=== PATIENT | female | born 1990 | race Caucasian/White ===

== ENCOUNTER 2016-07-01 10:21 | Outpatient (CLI) | payer BC ==
[2016-07-01] VITALS (18 sets, daily range): BP systolic 134–160; BP diastolic 89–104
[~2016-07-01] VITALS: Ht 165.1 cm; Wt 68.0 kg
[2016-07-01 11:59] LABS: ADD MIUA? YES; BILIRUBIN NEGATIVE; BLOOD NEGATIVE; COLOR YELLOW ((YELLOW)); GLUCOSE (STRIP) 50; KETONES NEGATIVE; LEUKOCYTES LARGE; NITRITE NEGATIVE; PROTEIN (STRIP) NEGATIVE; SPECIFIC GRAVITY 1.006 (1.000-1.030); UROBILINOGEN 0.2 MG/DL (0.2-1.0)
[2016-07-01 12:11] LABS: EOSINOPHIL (%) 0.5 % (0-5); IMMATURE GRANULOCYTE (%) 0.3 % (0.0-0.7); INSTRUMENT ABS NEUTROPHIL CT 6.7 K/uL; MCH 29.9 PG (29.0-34.0); MCHC 33.8 G/DL (30.0-36.0); MCV 88.3 FL (83-99); MEAN PLAT.VOLUME 10.7 uM^3 (9.5-12.4); MONOCYTE (%) 10.8 % (3-12); NEUTROPHIL (%) 76.6 % (45-76); NEUTROPHIL COUNT 6.7 K/uL (1.8-6.4); PLATELET COUNT 206 K/uL (156-360); RBC DIS.WIDTH-CV 13.3 % (11.8-14.6); RED BLOOD COUNT 3.85 M/uL (3.80-5.20); WHITE BLOOD COUNT 8.8 K/uL (4.1-10.2)
[2016-07-01 12:21] LABS: UR CREATININE CONCENTRATION 44.1 MG/DL
[2016-07-01 12:33] LABS: ANION GAP 9 MEQ/L (2-14); CHLORIDE 107 MEQ/L (99-109); POTASSIUM 3.5 MEQ/L (3.7-5.4); SAMPLE HEMOLYSIS CHECK 0; SAMPLE ICTERIC CHECK 0; SAMPLE LIPEMIA CHECK 0; SODIUM 140 MEQ/L (136-147); TOTAL BILIRUBIN 0.2 MG/DL (0.0-1.0)
[2016-07-01 12:38] LABS: ALKALINE PHOSPHATASE 72 IU/L (3-129); GFR ESTIMATE (CALCULATED) > 59 mL/min/; GLUCOSE 80 mg/dL (70-99); LACTATE DEHYDROGENASE 153 IU/L (20-246); UREA NITROGEN (BUN) 6 mg/dL (9-23); URIC ACID 3.1 mg/dL (3.1-9.2)
[2016-07-01 12:42] LABS: BACTERIA 1+ /HPF; EPITHELIAL CELLS 1+ /HPF; HYALINE CASTS 0-5 /LPF; MUCUS NONE SEEN /LPF; RED BLOOD CELLS 0-5 /HPF (0-5); UCUL ADDED? NO
== END 2016-07-01 20:35 | disposition home or self-care (01) ==
LOC: LDRP-OP → 2WEST 10:22 → LDRP-OP 10-06 17:34
PROVIDERS: Advanced Practice Midwife
DX: O13.3 Gestational [pregnancy-induced] hypertension without significant proteinuria, third trimester (principal); O14.93 Unspecified pre-eclampsia, third trimester; Z3A.30 30 weeks gestation of pregnancy
CPT/HCPCS: 59025; 76818; 80053; 81003; 82570; 83615; 84156; 84550; 85025; 85384; 87086; G0378

== ENCOUNTER 2016-08-16 11:25 | Inpatient (IN) | payer BC ==
[2016-08-16] VITALS (36 sets, daily range): BP systolic 115–163; BP diastolic 57–109
[~2016-08-16] VITALS: Ht 172.7 cm; Wt 84.1 kg
[2016-08-16 12:02] LABS: EOSINOPHIL (%) 0.4 % (0-5); IMMATURE GRANULOCYTE (%) 0.5 % (0.0-0.7); IMMATURE GRANULOCYTE COUNT 0.1 K/uL; INSTRUMENT ABS NEUTROPHIL CT 6.9 K/uL; LYMPHOCYTE COUNT 1.1 K/uL (1.0-2.8); MCH 29.6 PG (29.0-34.0); MCHC 33.5 G/DL (30.0-36.0); MCV 88.3 FL (83-99); MEAN PLAT.VOLUME 11.4 uM^3 (9.5-12.4); MONOCYTE COUNT 1.1 K/uL (0-0.8); NEUTROPHIL (%) 74.9 % (45-76); NEUTROPHIL COUNT 6.9 K/uL (1.8-6.4); PLATELET COUNT 204 K/uL (156-360); RBC DIS.WIDTH-CV 13.2 % (11.8-14.6); RBC DIS.WIDTH-SD 42.3 % (39-53); RED BLOOD COUNT 3.85 M/uL (3.80-5.20); WHITE BLOOD COUNT 9.2 K/uL (4.1-10.2)
[2016-08-16 12:14] LABS: CHLORIDE 109 mEq/L (99-109); SODIUM 138 mEq/L (136-147)
[2016-08-16 12:16] LABS: GLUCOSE 81 mg/dL (70-99); POTASSIUM 4.1 mEq/L (3.7-5.4)
[2016-08-16 12:17] LABS: ANION GAP 10 MEQ/L (2-14)
[2016-08-16 12:18] LABS: TOTAL BILIRUBIN 0.2 mg/dL (0.0-1.0)
[2016-08-16 12:19] LABS: ALKALINE PHOSPHATASE 121 IU/L (3-129)
[2016-08-16 12:20] LABS: GFR ESTIMATE (CALCULATED) > 59 mL/min/
[2016-08-16 12:21] LABS: UREA NITROGEN (BUN) 8 mg/dL (9-23)
[2016-08-16 13:57] LABS: UR CREATININE CONCENTRATION 59.1 MG/DL
[2016-08-16 14:09] LABS: LACTATE DEHYDROGENASE 153 IU/L (20-246); SAMPLE HEMOLYSIS CHECK 0; SAMPLE ICTERIC CHECK 0; SAMPLE LIPEMIA CHECK 0
[2016-08-16] MEDS ORDERED: LABETALOL HCL200 MG PO (18:34)
[2016-08-16] MEDS ORDERED: TUMS X-STR300 MG PO (18:35)
[2016-08-16] MEDS ORDERED: COLACE100 MG PO (18:37)
[2016-08-17] VITALS (37 sets, daily range): BP systolic 116–162; BP diastolic 59–104
[2016-08-18] VITALS (27 sets, daily range): BP systolic 116–152; BP diastolic 60–103
[2016-08-19] VITALS (7 sets, daily range): BP systolic 113–166; BP diastolic 63–97
[2016-08-19 07:11] LABS: EOSINOPHIL COUNT 0.1 K/uL (0-0.3); HEMATOCRIT 28.8 % (36.0-46.0); IMMATURE GRANULOCYTE (%) 0.6 % (0.0-0.7); IMMATURE GRANULOCYTE COUNT 0.1 K/uL; INSTRUMENT ABS NEUTROPHIL CT 9.1 K/uL; LYMPHOCYTE COUNT 1.7 K/uL (1.0-2.8); MCH 30.4 PG (29.0-34.0); MCV 89.4 FL (83-99); MEAN PLAT.VOLUME 11.2 uM^3 (9.5-12.4); MONOCYTE (%) 11.3 % (3-12); MONOCYTE COUNT 1.4 K/uL (0-0.8); NEUTROPHIL (%) 73.1 % (45-76); NEUTROPHIL COUNT 9.1 K/uL (1.8-6.4); PLATELET COUNT 199 K/uL (156-360); RBC DIS.WIDTH-CV 13.5 % (11.8-14.6); RBC DIS.WIDTH-SD 44.6 % (39-53); RED BLOOD COUNT 3.22 M/uL (3.80-5.20)
[2016-08-19 07:12] LABS: WHITE BLOOD COUNT 12.4 K/uL (4.1-10.2)
[2016-08-19 07:36] LABS: ALKALINE PHOSPHATASE 96 IU/L (3-129); ANION GAP 9 MEQ/L (2-14); CHLORIDE 107 MEQ/L (99-109); GFR ESTIMATE (CALCULATED) > 59 mL/min/; GLUCOSE 84 mg/dL (70-99); POTASSIUM 3.9 MEQ/L (3.7-5.4); SAMPLE HEMOLYSIS CHECK 0; SAMPLE ICTERIC CHECK 0; SAMPLE LIPEMIA CHECK 0; SODIUM 140 MEQ/L (136-147); TOTAL BILIRUBIN 0.2 MG/DL (0.0-1.0); UREA NITROGEN (BUN) 10 mg/dL (9-23)
[2016-08-20 04:39] VITALS: BP 139/88
[2016-08-20 08:11] VITALS: BP 149/99
[2016-08-20 09:45] VITALS: BP 135/87
== END 2016-08-20 11:30 | disposition home or self-care (01) | DRG 775 ==
LOC: LDRP-OP 11:25 → 2WEST 11:26 → LDRP-OP 10-06 21:03
PROVIDERS: Advanced Practice Midwife
PROC: 00HU33Z Insertion of Infusion Device into Spinal Canal, Percutaneous Approach (ICD-10-PCS; principal; 2016-08-18)
PROC: 3E0R3CZ (ICD-10-PCS; principal; 2016-08-18)
PROC: 3E0P7GC Introduction of Other Therapeutic Substance into Female Reproductive, Via Natural or Artificial Opening (ICD-10-PCS; principal; 2016-08-18)
PROC: 10E0XZZ Delivery of Products of Conception, External Approach (ICD-10-PCS; principal; 2016-08-18)
PROC: 0HQ9XZZ Repair Perineum Skin, External Approach (ICD-10-PCS; principal; 2016-08-18)
PROC: 10907ZC Drainage of Amniotic Fluid, Therapeutic from Products of Conception, Via Natural or Artificial Opening (ICD-10-PCS; principal; 2016-08-18)
DX: O13.4 Gestational [pregnancy-induced] hypertension without significant proteinuria, complicating childbirth (principal); O70.0 First degree perineal laceration during delivery; O16.4 Unspecified maternal hypertension, complicating childbirth; D64.9 Anemia, unspecified; O69.81X0 Labor and delivery complicated by cord around neck, without compression, not applicable or unspecified; O14.04 Mild to moderate pre-eclampsia, complicating childbirth; Z3A.37 37 weeks gestation of pregnancy; Z37.0 Single live birth; D62 Acute posthemorrhagic anemia; O26.03 Excessive weight gain in pregnancy, third trimester; R51 Headache; O76 Abnormality in fetal heart rate and rhythm complicating labor and delivery; O99.02 Anemia complicating childbirth
CPT/HCPCS: 80053; 82570; 83615; 84156; 84550; 85025; 88307; 93005; C1726; C1755; G0378; J0360; J2405; J3010; J3475; J7120